=== PATIENT | male | born 1995 | race American Indian/Alaskan Native ===

== ENCOUNTER 2020-08-09 19:43 | Emergency (ER) | payer OTHER ==
[~2020-08-09] VITALS: Ht 190.5 cm; Wt 104.3 kg
[~2020-08-09 19:43] MED LIST: ACYC200 PO; HYDACE5 PO; LIDO2L MM
== END 2020-08-09 21:07 | disposition home or self-care (01) ==
LOC: ER 19:43
DX: S61.012A Laceration without foreign body of left thumb without damage to nail, initial encounter (principal); W26.0XXA Contact with knife, initial encounter
CPT/HCPCS: 99282; A9270-GY

== ENCOUNTER 2021-01-29 20:24 | Emergency (ER) | payer OTHER ==
[~2021-01-29] VITALS: Ht 193 cm; Wt 124.7 kg
[2021-01-29] MEDS ORDERED: CITA20 PO (21:06)
== END 2021-01-29 21:28 | disposition home or self-care (01) ==
LOC: ER 20:24
DX: S61.011A Laceration without foreign body of right thumb without damage to nail, initial encounter (principal); S61.212A Laceration without foreign body of right middle finger without damage to nail, initial encounter; W45.8XXA Other foreign body or object entering through skin, initial encounter
CPT/HCPCS: 99282; A9270